=== PATIENT | male | born 1940 | race Caucasian/White ===

== ENCOUNTER 2016-09-10 22:19 | Inpatient (IN) | payer OTHER ==
--- NOTE | ~2016-09-10 | OP ---
Record Of Operation [facility] [address] [place]. 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 PROCEDURE: Incision and drainage and debridement with culture and sensitivity of the right lateral foot with this being a primarily incisional debridement to the bone with bone biopsy as well as culture and sensitivity of the bone and surrounding soft tissues with placement of four 0.5-inch [place] drains to drain tracts. Versajet used on level 7 for the majority of the incisional debridement. ANESTHESIA: General with endotracheal tube. SURGEON: Denice Holman M.D. SEO MARKETING SPECIALIST: Shauna Holman RN, [facility]. FINDINGS: Tracts from the right lateral foot that were opened up, one across the dorsum of the foot, the other into the plantar surface, another along the lateral aspect of the foot down towards the fourth toe and a fourth one up over the ankle. Four [place] drains were placed in these tracts and tied together. PROCEDURE IN DETAIL: After appropriate time-out and agreement of all personnel, the patient was prepped and draped with the right foot in the operative field. The foot was quite swollen, erythematous, and the ankle motion caused a sensation of crepitus. The lateral ulceration which was enlarged in a vertical fashion was carried out to the level of the metatarsal bone and soft tissues trimmed away with Versajet and blunt sharp dissection. A double-action rongeur was used to take pieces of the fourth metatarsal bone, which was exposed and this was submitted for pathology as well as for culture. Other soft tissue was submitted for culture to assist and tailoring antibiotic therapy. The opening was then explored with a Leyla clamp, probing the tracts of infectious progression and counter incisions were made along the lateral foot with a counter incision made to the level of the fourth toe laterally and a 0.5 inch [place] drain placed therein. Another trach was found to the mid foot on the dorsal aspect and another [place] drain was made through a counter incision about 7 cm from the original incision. A third site was found around the level of the anterior foot just below the ankle crease about 7 cm and a third [place] drain was placed through this counter incision and finally, a plantar surface tract was appreciated and a counter incision made in the middle of the mid foot 6 cm from the original incision and [place] drain placed therein. All cultures were obtained and Versajet used to clean up all the tissues that were visible, but clearly with the extensive osteomyelitis seen on the MRI. Complete excisional debridement of the bones involved was impossible. After this was done, the area was packed with Surgicel for hemostatic control and dressed with bulky dressing. Estimated blood loss 30 mL. A 4.5-inch [place] drains were used. Prognosis on foot salvage is extremely poor, but long-term IV antibiotics and hyperbaric oxygen therapy with continued local wound therapy will be utilized until the patient has accepted the below Record Of Operation [address] [place]. [address] NAME: FORTINO MAGANA : 40 STATUS : ADM IN PAT#: [id number] AGE: 76 ADM/REG DATE : 09/10/16 MR#: [id number] REPORT SERV DATE: 09/12/16 DICTATED BY: DENICE HOLMAN III DATE: 09/11/16 REPORT STATUS : Draft TRANSCRIBED BY: RUFINO DATE: 09/11/16 the-knee amputation need. RB/RUFINO Denice Holman III, M.D. / [id number] CC: MD Nigel Clancy D.O. [facility]
--- NOTE | ~2016-09-10 | CN ---
Consultation Report [facility] [address] [place]. [address] NAME: FORTINO MAGANA : 40 STATUS : ADM IN PAT#: [id number] AGE: 76 ADM/REG DATE : 09/10/16 MR#: [id number] REPORT SERV DATE: 09/12/16 DICTATED BY: DENICE HOLMAN III DATE: 09/11/16 REPORT STATUS : Draft TRANSCRIBED BY: MODL DATE: 09/11/16 SURGICAL WOUND HEALING CONSULT DATE OF CONSULTATION: 09/11/2016 HISTORY OF PRESENT ILLNESS: The patient is a 76-year-old white male, diabetic in steady deterioration in his right foot over the last two to three weeks. The patient has most recently developed severe swelling, bleeding, and pain. Outpatient MRI done last or Sunday showed extensive osteomyelitis findings of the mid foot including the calcaneus bone, metatarsals, and midfoot bones between these two structures. The patient has been [facility] on various treatment modalities. He was completely healed after a fifth metatarsal excision 06/19/2016 and was closed. He had had an osteomyelitis of the fifth metatarsal that was removed at that time. The patient has a very overall complex history of diabetes mellitus, chronic pain syndrome, back and spinal disease. PAST MEDICAL HISTORY: He had a past history of coronary artery disease and had a heart catheterization, high cholesterol, and hypertension. He also has hearing loss. He has had COPD and chronic pulmonary fibrotic changes with a malignancy of his lungs which has been successfully treated. Further past history includes diabetic foot problems on the left foot which have been treated multiple times, hernia surgery, and multiple left foot surgeries. Past surgical history includes 4-vessel CABG in 2011. He has had MRSA in the past and numerous surgeries, hernia repair, multiple foot surgeries. The patient has been placed in fpc facility several times and was noted to have problems immediately upon leaving the nursing facility and going back to his home situation where he lives alone with limited transportation and support. PHYSICAL EXAMINATION: GENERAL: He is an ill-appearing 76-year-old gentleman, looking somewhat older than his stated age. HEENT: Without real lateralization. NECK: Supple. CHEST: Showed some decreased inspiratory effort. HEART: Regular rate and rhythm. ABDOMEN: Soft, nontender, but obese with good bowel sounds. EXTREMITIES: Showed his left lower extremity to be distorted from previous surgery, but no acute changes. The right lower extremity showed to have a lateral ulceration in the mid foot that was significant in size being 2.5 x 1.7 x 1.4 cm deep with hemorrhagic slough present. The patient's pulses or palpable even though he has 3+ pitting edema and his AMADOR showed a normal AMADOR of the right with an index of 1.0. The foot is very neuropathic and erythematous with poor tone in the muscles. Consultation Report [address] [place]. [address] NAME: FORTINO MAGANA : 40 STATUS : ADM IN PAT#: [id number] AGE: 76 ADM/REG DATE : 09/10/16 MR#: [id number] REPORT SERV DATE: 09/12/16 DICTATED BY: DENICE HOLMAN III DATE: 09/11/16 REPORT STATUS : Draft TRANSCRIBED BY: RUFINO DATE: 09/11/16 REVIEW OF SYSTEMS: Consistent with coronary artery disease, COPD, diabetes, pain management, hypertension, hypothyroidism, lung cancer squamous cell, MRSA bacteremia in the past, C. difficile colitis, narcotic dependence, neuropathy, anemia, nephrolithiasis, pulmonary nodules, mediastinal lymphadenopathy. PAST SURGICAL HISTORY: Also includes CABG, right foot toe amputations, penile prosthesis, sternal wound healing issues, umbilical hernia repair, nasal fracture, right inguinal hernia repair. ALLERGIES: HE IS ALLERGIC TO PENICILLIN AND ADHESIVES. SOCIAL HISTORY: The patient smokes electric cigarettes. Denies alcohol. Lives alone in his trailer. FAMILY HISTORY: Noncontributory other than congestive heart failure and CAD. MEDICATIONS: The patient's current medications are significant in that he is on numerous pain medicines that alter his sensorium. These include albuterol, Xanax, Norvasc, Nexium, Lasix 40 mg daily, Humalog 70 N/30 R 70 units daily and insulin 70/30 R 30 units at bedtime. Also, on levothyroxine, Mobic, Toprol, Nasonex, MS Contin 30 mg every 12 hours, Habitrol 21 mg patch, Mycostatin cream to the groin area, nystatin powder to the groin area, oxycodone APAP 10/325 daily p.r.n. four times, Lyrica 25 mg three times a day, Zocor, Flomax, Restoril, Spiriva, Bactrim DS, Marli Back and Body Aspirin, Tylenol with caffeine for headaches p.r.n., lidocaine ointment p.r.n., Silvadene topical, and Diovan 160 p.o. daily. MRI shows extensive midfoot osteomyelitis involving anterior aspect of the calcaneus cuneiforms as well as the base of the first through the fifth metatarsal bones consistent with diffuse infectious and inflammatory process. Also suggestion of Charcot joints were noted as well as significant inflammatory changes in the skin consistent with underlying osteomyelitis that is extensive. I have had a long discussion with the patient about the lack of likelihood of the patient's foot being salvageable and a [id number] amputation will likely be the overall outcome. The patient refuses to consider a BKA at this time and prefers a local debridement and antibiotics and nonsurgical therapy. IMPRESSION: He has extensive osteomyelitis of the right mid foot with chronic lateral ulceration that is not healing because of the underlying osteomyelitis. We will try to do long-term antibiotic and hyperbaric oxygen treatments if possible, but the overall prognosis for salvage of the right foot is extremely poor. RB/RUFINO Consultation Report [facility] [address] [place]. [address] NAME: FORTINO MAGANA : 40 STATUS : ADM IN [facility]#: [id number] AGE: 76 ADM/REG DATE : 09/10/16 MR#: [id number] REPORT SERV DATE: 09/12/16 DICTATED BY: DENICE HOLMAN III DATE: 09/11/16 REPORT STATUS : Draft TRANSCRIBED BY: RUFINO DATE: 09/11/16 Denice Holman III, M.D. / [id number] CC: MD Nigel Clancy D.O.
--- NOTE | ~2016-09-10 | HP ---
History And Physical [address] [place]. [address] NAME: FORTINO MAGANA : 40 STATUS : ADM IN PAT#: [id number] AGE: 76 ADM/REG DATE : 09/10/16 MR#: [id number] REPORT SERV DATE: 09/11/16 DICTATED BY: DIAN ATKINS DATE: 09/10/16 REPORT STATUS : Draft TRANSCRIBED BY: MODL DATE: 09/10/16 DATE OF ADMISSION: 09/10/2016 CHIEF COMPLAINT: A 76-year-old male presenting with worsening right foot infection and swelling. HISTORY OF PRESENTING ILLNESS: The patient's history was obtained through careful interview with patient and his friend, coupled with review of [facility] medical records. The patient in June 2016 presented with osteomyelitis of a portion of his right foot and had to undergo a partial amputation under the care Dr. Noman Holman. He had initial improvement of symptoms and the appearance of his foot and has been followed [facility]. But over the last week or more, he has had particular worsening swelling, redness, ulceration with purulent drainage. He describes right foot pain of sharp quality, 7/10 to 8/10 severity exacerbated by a weightbearing. His main complaint has actually been back pain, at the middle of his back radiating down both legs like "sciatica" as he describes it, also an 8/10 to 9/10 severity. He describes the diabetes is under better control. Sometimes, he actually has low blood sugars. No nausea or vomiting. No fevers or chills. He has chronic shortness of breath and states "yep, it is still bad." No cough. No chest pain. REVIEW OF SYSTEMS: Otherwise, a 14-point review of systems was obtained and was negative. PAST MEDICAL HISTORY: 1. Diabetes with hemoglobin A1c of 9.6, June 2016. 2. Recurrent foot infections with ulceration and Charcot joint. 3. Coronary artery disease, status post CABG. 4. COPD. 5. Chronic pain management. 6. Hypertension. 7. Hypothyroidism. 8. Squamous cell carcinoma of the lung, status post radiation with mediastinal lymphadenopathy. 9. MRSA bacteremia. 10.C. difficile colitis. 11.Neuropathy. 12.Nephrolithiasis. History And Physical [address] 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 14.Cholelithiasis. PAST SURGICAL HISTORY: 1. CABG. 2. Partial right foot amputation for osteomyelitis. 3. Penile prosthesis. 4. Sternal wound infection and debridement. 5. Umbilical hernia repair. 6. Nasal fracture surgery. 7. Right inguinal hernia repair. ALLERGIES: ADHESIVE AND PENICILLIN. SOCIAL HISTORY: The patient smokes cigarettes. No alcohol abuse. Lives alone in [place], [place]. He has a friend who checks on him. A sister who lives locally, but is not much involved with his care. He has one daughter who lives in [place] and one granddaughter. He is retired from working in an [employer] store. He ambulates with a cane. FAMILY HISTORY: Diabetes, congestive heart failure, coronary artery disease. CURRENT MEDICATIONS: Include albuterol inhaler, Xanax 0.5 mg p.o. b.i.d., Norvasc 5 mg p.o. b.i.d., Nexium 40 mg daily, Lasix 40 mg daily, Humulin 70/30 subcutaneous, 70 units in the morning and 30 units at bedtime, sliding-scale insulin, levothyroxine 100 mcg p.o. daily, Mobic 15 mg p.o. at bedtime, metoprolol-XL 25 mg daily, Nasonex, MS Contin 30 mg p.o. b.i.d., nicotine patch, nystatin cream, Percocet p.r.n., Lyrica 25 mg p.o. t.i.d., Zocor 20 mg daily, Flomax 0.4 mg p.o. daily, Restoril 15 mg p.o. at bedtime, Spiriva inhaled daily, Bactrim double strength p.o. b.i.d., Tylenol, lidocaine patch, Diovan 160 mg p.o. daily. PHYSICAL EXAMINATION: VITAL SIGNS: Temperature 99.6, pulse 98, blood pressure 121/57, respiratory rate 20, O2 saturation 95% on room air. GENERAL: Pleasant, cooperative, male. He describes distressed from his right foot pain. HEENT: Pupils equal, round, and reactive to light. No conjunctival pallor. No scleral icterus. Nares are patent. Oropharynx is clear of obstruction. Mildly dry mucous membranes. NECK: Trachea midline. No thyromegaly. LYMPH: No cervical lymphadenopathy. No supraclavicular lymphadenopathy. No inguinal lymphadenopathy . RESPIRATORY: Clear to auscultation at bases. No wheezes, rales, or rhonchi. Mild patchy crackles on exam. A nonlabored respiratory effort. CARDIOVASCULAR: Regular rate and rhythm. No murmurs, rubs, or gallops. The patient has edema around his right foot infection, but no other edema on the left side. ABDOMEN: Soft, nontender, nondistended. Normal bowel sounds auscultated throughout. No organomegaly. DERMATOLOGICAL: The patient's right foot has extensive erythema, heat, tenderness, History And Physical [address] [address] NAME: FORTINO MAGANA : 40 STATUS : ADM IN [facility]#: [id number] AGE: 76 ADM/REG DATE : 09/10/16 MR#: [id number] REPORT SERV DATE: 09/11/16 DICTATED BY: DIAN ATKINS DATE: 09/10/16 REPORT STATUS : Draft TRANSCRIBED BY: MODJalen DATE: 09/10/16 fluctuance, and swelling that is quite severe compared to the left. The left side shows no pallor, no cyanosis, or warm and dry extremity. PSYCHIATRIC: Normal affect. Good mood. Alert and oriented x3. LABORATORY DATA: White blood count 9.6, hemoglobin 10, hematocrit 31, platelets 266. Sodium 134, potassium 4.7, chloride 103, bicarb 19, BUN 41, creatinine 1.87, glucose 151, albumin 2.9. Lactic acid 1.9. Alkaline phosphatase 215. STUDIES: Reviewed an MRI from 09/07/2016 showed right diffuse osteomyelitis from the toes all the way up to the heel. ASSESSMENT AND PLAN: 1. Severe diffuse foot osteomyelitis on the right side. Place on IV cefepime, IV vancomycin. Consult Surgery, Dr. Holman for foot amputation. 2. Uncontrolled diabetes. Hemoglobin A1c of 9.6 on June 2016. Continue basal insulin and sliding scale insulin. 3. Pulmonary fibrosis with bronchiectasis and chronic obstructive pulmonary disease with history of post radiation lung injury, place on DuoNeb nebulizers. 4. Squamous cell carcinoma of the lung status post radiation. 5. Chronic pain management. Continue chronic pain medications both as well as an IV narcotic pain management. 6. Acute kidney injury. Hold diuretic. Place on IV fluids and monitor. KPL/MODL Dian Atkins M.D. / [id number] CC: MD Nigel Morales D.O. Robert Barnett III, M.D.
--- NOTE | ~2016-09-10 | DS ---
Discharge Summary [facility] [address] [place]. [address] NAME: FORTINO MAGANA : 40 STATUS : DIS IN PAT#: [id number] AGE: 76 ADM/REG DATE : 09/10/16 MR#: [id number] REPORT SERV DATE: 09/16/16 DICTATED BY: NATALIIA PRINGLE II DATE: 09/15/16 REPORT STATUS : Draft TRANSCRIBED BY: MODL DATE: 09/15/16 ADMISSION DATE: 09/10/2016 DISCHARGE DATE: 09/15/2016 DISCHARGE DIAGNOSES: 1. Recurrent right lower extremity osteomyelitis with abscess. 2. Diabetes mellitus type 2. 3. History of coronary artery disease and peripheral artery disease. 4. History of chronic obstructive pulmonary disease. 5. History of hypertension. 6. History of non-small cell lung cancer. 7. History of chronic pain. 8. History of Clostridium difficile colitis. 9. History of neuropathy. 10.History of post-radiation fibrosis, bronchiectasis to the lungs. CONSULTS: 1. Noman Holman M.D. with Surgery. 2. Huey Nichols M.D. with Infectious Disease. PROCEDURES: Incision and drainage, and debridement of the right lateral foot, by Dr. Holman. BRIEF HISTORY OF PRESENT ILLNESS: The patient is a 76-year-old male with the above history, who presented to [facility] due to worsening right foot infection and swelling. For detailed history and physical examination, please see Dr. Prieto's note from 09/10/2016. HOSPITAL COURSE: On admission, the patient was placed on vancomycin and cefepime. An MRI done on 09/07/2016 showed extensive midfoot osteomyelitis above the knee anterior aspect of the calcaneus, cuneiforms, as well as the base of the first through fifth metatarsal bones consistent with a diffuse infectious plantar process. His white count on admission was only 9.6. Dr. Holman was consulted and subsequently performed the aforementioned procedure. He has recommended at multiple times during previous infections over the last five years the patient will need a CAMILLA eventually; however, the patient continues to refuse. The patient is receiving postop wound care with several drains still in place which will remain in place for two weeks. Dopplers of the lower extremity showed no evidence of DVT, and arterial duplex showed some mild stenosis of the right iliac artery and hyperemic blood flow distally consistent with an underlying infection. Wound cultures came back with Enterococcus faecalis, sensitive to ampicillin and Dr. Nichols is recommending six weeks of IV antibiotics. A PICC line was placed and the patient will also be on prophylactic oral vancomycin for the duration of his antibiotics given the history of C. diff. Otherwise, regarding the patient's other chronic medical problems these are stable and he has been continued on his home medications. His hemoglobin A1c was actually 7.7, better than it has been in the past. At this point, the patient has been approved for SNF for further management, and will be discharged in stable condition. Discharge Summary [facility] [address] [place]. [address] NAME: FORTINO MAGANA : 40 STATUS : DIS IN PAT#: [id number] AGE: 76 ADM/REG DATE : 09/10/16 MR#: [id number] REPORT SERV DATE: 09/16/16 DICTATED BY: NATALIIA PRINGLE II DATE: 09/15/16 REPORT STATUS : Draft TRANSCRIBED BY: RUFINO DATE: 09/15/16 DISCHARGE MEDICATIONS: 1. Xanax 0.5 mg p.o. b.i.d. 2. Norvasc 5 mg p.o. b.i.d. 3. Iodosorb gel to the right foot q.h.s. 4. Insulin aspart level 3 sliding scale a.c. and h.s. 5. Humulin 70/30, 70 units subcu daily and 30 units subcu q.h.s. 6. Synthroid 100 mcg p.o. daily. 7. MS Contin 30 mg p.o. q.12 hours. 8. Metoprolol 25 mg p.o. daily. 9. Nicotine patch 21 mg topically daily. 10.Percocet 10/325 mg p.o. q.6 hours. 11.Nexium 40 mg p.o. daily. 12.Lyrica 25 mg p.o. t.i.d. 13.Zocor 20 mg p.o. q.h.s. 14.Flomax 0.4 mg p.o. q.h.s. 15.Restoril 15 mg p.o. q.h.s. 16.Spiriva one cap inhale daily. 17.Anoro Ellipta one puff daily. 18.Valsartan 160 mg p.o. daily. 19.Vancomycin 125 mg p.o. q.12 hours. 20.Ampicillin 2 g IV q.6 hours x6 weeks. 21.Albuterol neb q.4 times daily p.r.n. 22.Mycostatin topically to the groin for rash t.i.d. 23.Zofran 4 mg sublingual q.4 hours p.r.n. nausea. 24.Ventolin two puffs q.4 hours p.r.n., shortness of breath. 25.Lasix 40 mg p.o. daily. 26.Silver sulfadiazine topical daily. 27.Nasonex two sprays daily. DISCHARGE INSTRUCTIONS: The patient will be discharged to halfway for further rehab and IV antibiotics. Otherwise, he will follow up in the [facility] in one to two weeks as scheduled. GENNA/RUFINO Nataliia Pirngle II, MD / [id number] CC: MD Nigel Reed II, D.O.
[~2016-09-10 22:19] MED LIST: ACET500CAP PO; ADVAIR250 INH; ALBUTEROL SULFATE INH; AMB5 PO; ANDROGEL5 TOP; ANOROELLIPTA INH; ASA5GR PO; ASABAYER PO; AZACTAM1 IV; BACDS PO; BAYER BACK & BODY PO; CAT1 PO; CLARIT10 PO; CLEOCIN300 MG PO; DEMA20 PO; DIOV160 PO; ENDOCET1 TA3 PO; FLOMAX4 PO; HUMALOG SC; HUMULIN R1 ML SC; HUMULIN SC; HYDROCORT12 TOP; HYDROCORT2.5 % TOP; IBU800 PO; IMOD PO; IODOSORB TOP; IRON325 MG PO; K500 PO; KAOPECTAT2 PO; L40 PO; LEVEMIR SC; LEVOTHYROXIN100 MCG PO; LEVOTHYROXIN75 MCG PO; LIPITOR40 PO; MAX2 IV; MIRALAXPKT PO; MOBIC15 MG PO; MOBIC7.5 PO; MSCONT15 PO; MSCONTIN PO; NASONEX NAS; NEXIUM40 MG PO; NEXIUM40 PO; NICODERM C14 MG/24 H TOP; NICODERM C21 MG/241 TOP; NICORETTE NAS; NICOTINE LOZENGE PO; NICOTROL INH; NORV5 PO; NYSTATPOW T; PERCOCET1 TA4 PO; PROBIOTIC PO; PROVENTSOL INH; REST15 PO; SANTYL250 MG/GM TOP; SENTAB PO; SILVADENE1 % TOP; SPIRIVA INH; SUCR PO; SYN075 PO; T PO; TOPXL25 PO; VANCO1P IV; VANCO500 IV; VANCOCIN HCL125 MG PO; VENTOLIN HFA INH; VENTOLIN HFA PO; VIB100 PO; WELCHOL 625 MG625 MG PO; X5 PO; XANAX1 MG PO; XIFAXAN PO; ZOCOR20 PO; ZOFRAN4 PO
[2016-09-10 22:21] LABS: BASOPHILS 0.4 %; BASOPHILS ABSOLUTE 0.04 10/3/uL (0.0-0.16); EOSINOPHILS 1.9 %; EOSINOPHILS ABSOLUTE 0.18 10/3/uL (0.0-0.53); HEMATOCRIT 31.2 % (40.0-51.0); HEMOGLOBIN 10.5 g/dL (13.6-17.8); IMMATURE GRANULOCYTES 0.3 %; IMMATURE GRANULOCYTES ABSOLUTE 0.03 10/3/uL (0.0-0.11); LYMPHOCYTES 14.6 %; LYMPHOCYTES ABSOLUTE 1.39 10/3/uL (0.67-4.30); MEAN CORPUS HGB CONC 33.7 g/dL (32.0-36.0); MEAN CORPUSCULAR HEMOGLOB 29.2 pg (26.0-34.0); MEAN CORPUSCULAR VOLUME 86.9 fL (80-100); MEAN PLATELET VOLUME 9.9 fL (9.2-13.0); MONOCYTES 6.9 %; MONOCYTES ABSOLUTE 0.66 10/3/uL (0.21-1.20); NEUTROPHILS 75.9 %; NEUTROPHILS ABSOLUTE 7.25 10/3/uL (2.02-8.40); RBC DISTRIBUTION WIDTH 14.6 % (12.0-16.0); RED CELL COUNT 3.59 10/6/uL (4.7-6.1)
[2016-09-10 22:23] LABS: ER CBC TAT 0 Hrs 15 Mins; MANUAL DIFF NO %; PLATELET COUNT 266 10/3/uL (150-400); WHITE BLOOD CELLS 9.6 10/3/uL (4.5-10.5)
[2016-09-10 22:29] LABS: A/G RATIO 0.5 (0.7-1.9); ALBUMIN 2.9 G/DL (3.5-5.0); CALCIUM, SERUM 8.7 MG/DL (8.5-10.4); CHLORIDE, SERUM 103 MMOL/L (96-112); CO2 (CARBON DIOXIDE) 19 MMOL/L (24-34); GLOBULIN 5.6 G/DL (2.5-4.1); GLUCOSE, SERUM 151 MG/DL (60-99); POTASSIUM, SERUM 4.7 MMOL/L (3.5-5.3); SGPT(ALT) 27 U/L (5-65); SODIUM, SERUM 134 MMOL/L (135-148); TOTAL BILIRUBIN 0.2 MG/DL (0-1.2); TOTAL PROTEIN 8.5 G/DL (6.0-8.5)
[2016-09-10 22:30] LABS: ALKALINE PHOSPHATASE 215 U/L (45-117); BUN (BLOOD UREA NITROGEN) 41 MG/DL (6-23); CREATININE 1.87 MG/DL (0.70-1.30); GFR AFRICAN AMERICAN 40 ML/MIN (>=60); GFR NON AFRICAN AMERICAN 34 ML/MIN (>=60); SGOT(AST) 36 U/L (5-40)
[2016-09-10 22:41] LABS: LACTATE 1.7 MMOL/L (0.3-2.4)
[2016-09-10] MEDS ORDERED: NORV5 PO (22:49)
[2016-09-10] MEDS ORDERED: PERCOCET 10/3251 TAB PO (22:49)
[2016-09-10] MEDS ORDERED: MSCONTIN PO (22:49)
[2016-09-10] MEDS ORDERED: REST15 PO (22:50)
[2016-09-10] MEDS ORDERED: DIOV160 PO (22:50)
[2016-09-10] MEDS ORDERED: LEVOTHYROXIN100 MCG PO (22:50)
[2016-09-10] MEDS ORDERED: HUMULIN SC ×2 (22:50→22:51)
[2016-09-10] MEDS ORDERED: X5 PO (22:50)
[2016-09-10] MEDS ORDERED: L40 PO (22:51)
[2016-09-10] MEDS ORDERED: HUMULIN R1 ML SC (22:51)
[2016-09-10] MEDS ORDERED: FLOMAX4 PO (22:51)
[2016-09-10] MEDS ORDERED: SPIRIVA INH (22:51)
[2016-09-10] MEDS ORDERED: LYRICA25 PO (22:52)
[2016-09-10] MEDS ORDERED: MOBIC15 MG PO (22:52)
[2016-09-10] MEDS ORDERED: BACDS PO (22:53)
[2016-09-10] MEDS ORDERED: BAYER BACK AND BODY PO (22:53)
[2016-09-10] MEDS ORDERED: TOPXL25 PO (22:53)
[2016-09-10] MEDS ORDERED: LIDOCAINE 5% OINT TOP (22:54)
[2016-09-10] MEDS ORDERED: ACETAMINOPHEN PO (22:54)
[2016-09-10] MEDS ORDERED: NEXIUM40 PO (22:54)
[2016-09-10] MEDS ORDERED: CAFFEINE PO (22:54)
[2016-09-10] MEDS ORDERED: ZOCOR20 PO (22:55)
[2016-09-10] MEDS ORDERED: VENTOLIN HFA INH (22:55)
[2016-09-10] MEDS ORDERED: NYSTATPOW TOP (22:56)
[2016-09-10] MEDS ORDERED: SILVER SULFADIAZINE TOP (22:57)
[2016-09-10] MEDS ORDERED: NASONEX NAS (22:57)
[2016-09-10] MEDS ORDERED: HABIT21 TOP (22:57)
[2016-09-10] MEDS ORDERED: ALBUTEROL0.083 % INH (22:58)
[2016-09-10] MEDS ORDERED: MYCOSCROI TOP (22:58)
[2016-09-11 05:14] LABS: BASOPHILS 0.6 %; BASOPHILS ABSOLUTE 0.04 10/3/uL (0.0-0.16); EOSINOPHILS 1.8 %; EOSINOPHILS ABSOLUTE 0.13 10/3/uL (0.0-0.53); HEMATOCRIT 31.6 % (40.0-51.0); HEMOGLOBIN 10.5 g/dL (13.6-17.8); IMMATURE GRANULOCYTES 0.1 %; IMMATURE GRANULOCYTES ABSOLUTE 0.01 10/3/uL (0.0-0.11); LYMPHOCYTES 25.7 %; LYMPHOCYTES ABSOLUTE 1.86 10/3/uL (0.67-4.30); MEAN CORPUS HGB CONC 33.2 g/dL (32.0-36.0); MEAN CORPUSCULAR HEMOGLOB 29.2 pg (26.0-34.0); MEAN PLATELET VOLUME 9.7 fL (9.2-13.0); MONOCYTES 7.2 %; MONOCYTES ABSOLUTE 0.52 10/3/uL (0.21-1.20); NEUTROPHILS 64.6 %; NEUTROPHILS ABSOLUTE 4.69 10/3/uL (2.02-8.40); PLATELET COUNT 195 10/3/uL (150-400); RBC DISTRIBUTION WIDTH 14.7 % (12.0-16.0); RED CELL COUNT 3.59 10/6/uL (4.7-6.1); WHITE BLOOD CELLS 7.3 10/3/uL (4.5-10.5)
[2016-09-11 05:16] LABS: MANUAL DIFF NO %
[2016-09-11 05:27] LABS: INTERNATIONAL NORMAL RATI 1.1 UNITS (-); PARTIAL THROMBO TIME 37.6 SEC (22.5-37.2); PROTIME (NOT ORD) 14.3 SEC (12.0-14.5)
[2016-09-11 05:49] LABS: A/G RATIO 0.5 (0.7-1.9); ALBUMIN 2.5 G/DL (3.5-5.0); CALCIUM, SERUM 8.4 MG/DL (8.5-10.4); CHLORIDE, SERUM 105 MMOL/L (96-112); CO2 (CARBON DIOXIDE) 19 MMOL/L (24-34); CREATININE 1.38 MG/DL (0.70-1.30); GFR AFRICAN AMERICAN 57 ML/MIN (>=60); GFR NON AFRICAN AMERICAN 49 ML/MIN (>=60); POTASSIUM, SERUM 4.2 MMOL/L (3.5-5.3); SGOT(AST) 29 U/L (5-40); SGPT(ALT) 21 U/L (5-65); SODIUM, SERUM 136 MMOL/L (135-148); TOTAL BILIRUBIN 0.3 MG/DL (0-1.2); TOTAL PROTEIN 7.5 G/DL (6.0-8.5); TROPONIN I 0.02 NG/ML (<0.05)
[2016-09-11 05:54] LABS: ALKALINE PHOSPHATASE 193 U/L (45-117); BUN (BLOOD UREA NITROGEN) 37 MG/DL (6-23); GLUCOSE, SERUM 106 MG/DL (60-99)
[2016-09-11 12:19] LABS: PREALBUMIN 10.1 MG/DL (17.0-43.0)
[2016-09-12 09:54] LABS: HEMATOCRIT 31.4 % (40.0-51.0); HEMOGLOBIN 10.5 g/dL (13.6-17.8); MEAN CORPUS HGB CONC 33.4 g/dL (32.0-36.0); MEAN CORPUSCULAR HEMOGLOB 29.2 pg (26.0-34.0); MEAN CORPUSCULAR VOLUME 87.5 fL (80-100); MEAN PLATELET VOLUME 9.8 fL (9.2-13.0); PLATELET COUNT 207 10/3/uL (150-400); RBC DISTRIBUTION WIDTH 14.6 % (12.0-16.0); RED CELL COUNT 3.59 10/6/uL (4.7-6.1); WHITE BLOOD CELLS 6.8 10/3/uL (4.5-10.5)
[2016-09-12 09:55] LABS: MANUAL DIFF YES %
[2016-09-12 10:05] LABS: BUN (BLOOD UREA NITROGEN) 26 MG/DL (6-23); CALCIUM, SERUM 8.2 MG/DL (8.5-10.4); CHLORIDE, SERUM 108 MMOL/L (96-112); CO2 (CARBON DIOXIDE) 21 MMOL/L (24-34); CREATININE 1.07 MG/DL (0.70-1.30); GFR AFRICAN AMERICAN 78 ML/MIN (>=60); GFR NON AFRICAN AMERICAN 67 ML/MIN (>=60); GLUCOSE, SERUM 169 MG/DL (60-99); POTASSIUM, SERUM 4.5 MMOL/L (3.5-5.3); SODIUM, SERUM 138 MMOL/L (135-148)
[2016-09-12 10:16] LABS: BAND NEUTROPHILS 1 %; EOSINOPHILS 4 %; EOSINOPHILS ABSOLUTE (CALC) 0.27 10/3/uL (0.0-0.53); LYMPHOCYTES 10 %; LYMPHOCYTES ABSOLUTE (CALC) 0.68 10/3/uL (0.67-4.30); MONOCYTES 9 %; MONOCYTES ABSOLUTE (CALC) 0.61 10/3/uL (0.21-1.20); NEUTROPHILS ABSOLUTE (CALC) 5.24 10/3/uL (2.02-8.40); PLATELET ESTIMATE ADQ (ADEQUATE); RBC MORPHOLOGY NORM (NORMAL); SEGMENTED NEUTROPHIL (0) 76 %; TOTAL NUCLEATED CELLS 100
[2016-09-13 06:35] LABS: BASOPHILS 0.4 %; BASOPHILS ABSOLUTE 0.03 10/3/uL (0.0-0.16); EOSINOPHILS ABSOLUTE 0.14 10/3/uL (0.0-0.53); HEMATOCRIT 30.2 % (40.0-51.0); HEMOGLOBIN 9.9 g/dL (13.6-17.8); IMMATURE GRANULOCYTES 0.1 %; IMMATURE GRANULOCYTES ABSOLUTE 0.01 10/3/uL (0.0-0.11); LYMPHOCYTES 18.7 %; MEAN CORPUS HGB CONC 32.8 g/dL (32.0-36.0); MEAN CORPUSCULAR HEMOGLOB 28.9 pg (26.0-34.0); MEAN PLATELET VOLUME 9.5 fL (9.2-13.0); MONOCYTES 7.8 %; MONOCYTES ABSOLUTE 0.54 10/3/uL (0.21-1.20); NEUTROPHILS ABSOLUTE 4.92 10/3/uL (2.02-8.40); PLATELET COUNT 209 10/3/uL (150-400); RBC DISTRIBUTION WIDTH 14.9 % (12.0-16.0); RED CELL COUNT 3.43 10/6/uL (4.7-6.1); WHITE BLOOD CELLS 6.9 10/3/uL (4.5-10.5)
[2016-09-13 06:38] LABS: MANUAL DIFF NO %
[2016-09-13 06:47] LABS: BUN (BLOOD UREA NITROGEN) 20 MG/DL (6-23); CALCIUM, SERUM 8.2 MG/DL (8.5-10.4); CHLORIDE, SERUM 106 MMOL/L (96-112); CO2 (CARBON DIOXIDE) 21 MMOL/L (24-34); CREATININE 1.01 MG/DL (0.70-1.30); GFR AFRICAN AMERICAN 83 ML/MIN (>=60); GFR NON AFRICAN AMERICAN 72 ML/MIN (>=60); GLUCOSE, SERUM 175 MG/DL (60-99); POTASSIUM, SERUM 4.3 MMOL/L (3.5-5.3); SODIUM, SERUM 137 MMOL/L (135-148)
[2017-01-07] MEDS ORDERED: LIDO5OINT TOP (13:47)
[2017-01-07] MEDS ORDERED: NEXIUM40 PO (13:47)
[2017-01-07] MEDS ORDERED: MSCONTIN PO (13:47)
[2017-01-07] MEDS ORDERED: PERCOCET 10/3251 TAB PO (13:48)
[2017-01-07] MEDS ORDERED: DICLOFENAC TOP (13:49)
[2017-01-07] MEDS ORDERED: NALOXONE SC (13:51)
[2017-01-07] MEDS ORDERED: X5 PO (13:51)
[2017-01-07] MEDS ORDERED: NORV5 PO (13:51)
[2017-01-07] MEDS ORDERED: BAYER BACK AND BODY PO (14:29)
[2017-01-07] MEDS ORDERED: LIDODERM TOP (14:29)
[2017-01-07] MEDS ORDERED: REST15 PO (14:30)
[2017-01-07] MEDS ORDERED: ANOROELLIPTA INH (14:30)
[2017-01-07] MEDS ORDERED: TOPXL25 PO (14:30)
[2017-01-07] MEDS ORDERED: MOBIC15 MG PO (14:31)
[2017-01-07] MEDS ORDERED: L40 PO (14:31)
[2017-01-07] MEDS ORDERED: DIOV160 PO (14:31)
[2017-01-07] MEDS ORDERED: LEVOTHYROXIN100 MCG PO (14:31)
[2017-01-07] MEDS ORDERED: VENTOLIN HFA PO (14:31)
[2017-01-07] MEDS ORDERED: FLOMAX4 PO (14:32)
[2017-01-07] MEDS ORDERED: ZOCOR20 PO (14:32)
[2017-01-07] MEDS ORDERED: MYCOSCROI TOP (14:32)
[2017-01-07] MEDS ORDERED: [UNRECOGNIZED DRUG - REMARK] TOP (14:33)
[2017-01-07] MEDS ORDERED: HYDROCORTISONE CREAM TOP (14:35)
[2017-01-07] MEDS ORDERED: HUMULIN SC ×2 (14:36)
[2017-01-07] MEDS ORDERED: HUMULIN R1 ML SC (14:37)
[2017-02-22] MEDS ORDERED: HABIT21 TOP (18:47)
== END 2016-09-15 17:09 | DRG 478 ==
LOC: ER 22:19 → 4SO 22:26
PROVIDERS: Hospitalist; Internal Medicine; Physician Assistant; Surgery
DX: M86.8X7 Other osteomyelitis, ankle and foot (principal); N17.9 Acute kidney failure, unspecified; E46 Unspecified protein-calorie malnutrition; E11.610 Type 2 diabetes mellitus with diabetic neuropathic arthropathy; J70.1 Chronic and other pulmonary manifestations due to radiation; L02.611 Cutaneous abscess of right foot; E11.621 Type 2 diabetes mellitus with foot ulcer; E11.65 Type 2 diabetes mellitus with hyperglycemia; L97.519 Non-pressure chronic ulcer of other part of right foot with unspecified severity; E11.69 Type 2 diabetes mellitus with other specified complication; I25.10 Atherosclerotic heart disease of native coronary artery without angina pectoris; Z95.1 Presence of aortocoronary bypass graft; E03.9 Hypothyroidism, unspecified; J44.9 Chronic obstructive pulmonary disease, unspecified; Z85.118 Personal history of other malignant neoplasm of bronchus and lung; Z86.14 Personal history of Methicillin resistant Staphylococcus aureus infection; Z92.3 Personal history of irradiation; Z87.442 Personal history of urinary calculi; I10 Essential (primary) hypertension; Z89.431 Acquired absence of right foot; F17.210 Nicotine dependence, cigarettes, uncomplicated; Z79.4 Long term (current) use of insulin; Z79.891 Long term (current) use of opiate analgesic; G89.4 Chronic pain syndrome; Z88.0 Allergy status to penicillin; Z91.048 Other nonmedicinal substance allergy status; I73.9 Peripheral vascular disease, unspecified; B95.2 Enterococcus as the cause of diseases classified elsewhere; Y84.2 Radiological procedure and radiotherapy as the cause of abnormal reaction of the patient, or of later complication, without mention of misadventure at the time of the procedure; Z68.30 Body mass index [BMI] 30.0-30.9, adult
CPT/HCPCS: 36569; 71010; 73630-RT; 73720-RT; 80048; 80053; 82962; 83036; 83605; 83735; 83880; 84134; 84443; 84484; 85025; 85610; 85652; 85730; 87015; 87040; 87070; 87075; 87077; 87102; 87116; 87186; 87205; 88304; 88307; 88311; 93926; 93971; 94640; 97110-GP; 97161-GP; 99285; A9270-GY; A9577; C1751; J0290; J0692; J2405; J3010; J3370